=== PATIENT | male | born 1980 | race Hispanic/Latino ===

== ENCOUNTER → 2023-04-24 | Emergency (ER) | payer OTHER, SELFPAY ==
[~2023-04-24] MED LIST: IPRATROPIUM BROM 0.5MG/2.5ML ONE; LEVALBUTEROL 1.25 MG/3 ML NEB ONE; METHYLPREDNISOLONE 125 MG INJ ONE
--- NOTE | 2023-04-24 10:15 | RAD REPORT ---
EXAM DESCRIPTION: RAD - Chest Single View - 04/24/2023 10:00 am CLINICAL HISTORY: DYSPNEA Chest pain. COMPARISON: No comparisons FINDINGS: Portable technique limits examination quality. The lungs are grossly clear. The heart is normal in size. No displaced fractures. IMPRESSION: No acute intrathoracic process suspected.
--- NOTE | 2023-04-24 10:54 | EDPHYS ---
Physician Documentation [facility] Name: Aman Ratliff Jr Age: 42 yrs Sex: Male : 1980 Arrival Date: 04/24/2023 Time: 09:21 Bed 2 Private MD: ED Physician Osvaldo Britton HPI: 04/23 09:36 This 42 yrs old Male presents to ER via Ambulatory with complaints of Asthma rn Exacerbation. 09:36 The patient presents to the emergency department with wheezing, Current therapy: rn albuterol inhaler. Onset: The symptoms/episode began/occurred yesterday. Modifying factors: The symptoms are alleviated by nothing, the symptoms are aggravated by nothing. Associated signs and symptoms: Pertinent negatives: fever. Severity of symptoms: At their worst the symptoms were mild in the emergency department the symptoms are unchanged. The patient has experienced similar episodes in the past. The patient has not recently seen a physician. Patient reports having asthma exacerbation since last night. 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 Does not feel ill. No fever. Has nonproductive cough. Feels identical to other asthma exacerbations. No cardiac history. Does smoke. No hemoptysis. No history of DVT or PE. No trauma.. Historical: - Allergies: 09:33 No Known Allergies; aa5 - PMHx: 09:33 Asthma; aa5 - PSHx: 09:33 reconstruction of right leg; stomach sx post trauma; left flank (muscle); multiple skin aa5 grafts; - Immunization history:: Adult Immunizations unknown. - Social history:: Smoking status: Patient reports the use of cigarette tobacco products, denies chronic smoking, but will smoke occasionally. - Family history:: not pertinent. - Hospitalizations: : No recent hospitalization is reported. ROS: 09:36 Constitutional: Negative for fever, chills, and weight loss, Cardiovascular: Negative rn for chest pain, palpitations, and edema, Respiratory: Positive for shortness of breath and wheezing Abdomen/GI: Negative for abdominal pain, nausea, vomiting, diarrhea, and constipation, MS/Extremity: Negative for injury and deformity, Skin: Negative for injury, rash, and discoloration, Neuro: Negative for headache, weakness, numbness, tingling, and seizure, Exam: 09:36 Constitutional: This is a well developed, well nourished patient who is awake, alert, rn mild tachypnea Head/Face: Normocephalic, atraumatic. ENT: Dry mucous membranes, no stridor Cardiovascular: Regular rate and rhythm. No pulse deficits. Respiratory: Mild tachypnea, expiratory wheezing throughout noted. No retractions. Speaking full sentences. Abdomen/GI: Soft, non-tender MS/ Extremity: Pulses equal, no cyanosis. Neuro: Awake and alert, GCS 15 Vital Signs: 09:23 BP 152 / 119; Pulse 88; Resp 20 S; Temp 97.6(TE); Pulse Ox 98% on R/A; Weight 106.59 kg aa5 (R); Height 5 ft. 9 in. (R); 09:57 BP 152 / 119; Pulse 77; Resp 18; Pulse Ox 99% on R/A; ld1 10:42 BP 162 / 101; Pulse 67; Resp 18; Pulse Ox 100% on R/A; ld1 09:23 Body Mass Index 34.70 (106.59 kg, 175.26 cm) aa5 MDM: 09:26 Patient medically screened. rn 10:52 Differential diagnosis: acute asthma, reactive airway. Antibiotic administration: Not rn indicated. Data reviewed: vital signs, nurses notes, radiologic studies, plain films, and as a result, I will discharge patient. Counseling: I had a detailed discussion with the patient and/or guardian regarding the historical points, exam findings, and any diagnostic results supporting the discharge/admit diagnosis, radiology results, the need for outpatient follow up, to return to the emergency department if symptoms worsen or persist or if there are any questions or concerns that arise at home. Response to treatment: the patient's symptoms have mildly improved after treatment, and as a result, I will discharge patient. Special discussion: I discussed with the patient/guardian in detail that at this point there is no indication for admission to the hospital. It is understood, however, that if the symptoms persist or worsen the patient needs to return immediately for re-evaluation. 04/23 09:35 Order name: XRAY Chest (1 view); Complete Time: 10:16 rn 04/23 09:35 Order name: IV Start; Complete Time: 09:56 rn Administered Medications: 09:57 Drug: MethylPrednisoLONE IVP 125 mg IVP once Route: IVP; Site: left forearm; ld1 09:57 Drug: Levalbuterol Inhalation 1.25 mg Inhalation once Route: Inhalation; ld1 09:57 Drug: Ipratropium Inhalation Aerosol 0.5 mg Inhalation once Route: Inhalation; ld1 Disposition Summary: 04/24/23 10:54 Discharge Ordered Notes: Location: Home rn Problem: new rn Symptoms: have improved rn Condition: Stable rn Diagnosis - Moderate persistent asthma with (acute) exacerbation rn Followup: rn - With: Private Physician - When: As needed - Reason: Recheck today's complaints, Re-evaluation by your physician Discharge Instructions: - Discharge Summary Sheet rn - Asthma, Adult rn Forms: - Medication Reconciliation Form rn - Thank You Letter 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 - Prescription Opioid Use rn - Patient Portal Instructions rn - Leadership Thank You Letter rn - Work release form aa5 Prescriptions: - albuterol sulfate 90 mcg/actuation Inhalation HFA Aerosol Inhaler - inhale 2 inhalation INHALATION route every 4 to 6 hours As needed as needed for rn bronchospasm; administer via ventilator; 1 unit; Refills: 0, Product Selection Permitted - Prednisone 20 mg Oral Tablet - take 3 tablets ORAL route once daily for 5 days; 15 tablet; Refills: 0, Product rn Selection Permitted Signatures: Dispatcher [employer] Osvaldo Marinelli MD MD rn Calderon, Audri RN RN aa5 Fern Ann RN RN ld1
--- NOTE | 2023-04-24 10:54 | ER ---
Nurse's Notes [facility] Name: Aman Ratliff Jr Age: 42 yrs Sex: Male : 1980 Arrival Date: 04/24/2023 Time: 09:21 Bed 2 Private MD: Diagnosis: Moderate persistent asthma with (acute) exacerbation Presentation: 04/23 09:23 Chief complaint: Patient states: "It's my asthma". Pt reports dry cough and SOB since aa5 last night. 09:23 Coronavirus screen: shortness of breath. Ebola Screen: Patient denies travel to an aa5 Ebola-affected area in the 21 days before illness onset. Initial Sepsis Screen: Does the patient meet any 2 criteria? No. Patient's initial sepsis screen is negative. Does the patient have a suspected source of infection? No. Patient's initial sepsis screen is negative. Risk Assessment: Do you want to hurt yourself or someone else? Patient reports no desire to harm self or others. Onset of symptoms was April 2023. 09:23 Method Of Arrival: Ambulatory aa5 09:23 Acuity: HARSHIL 3 aa5 Historical: - Allergies: 09:33 No Known Allergies; aa5 - PMHx: 09:33 Asthma; aa5 - PSHx: 09:33 reconstruction of right leg; stomach sx post trauma; left flank (muscle); multiple skin aa5 grafts; - Immunization history:: Adult Immunizations unknown. - Social history:: Smoking status: Patient reports the use of cigarette tobacco products, denies chronic smoking, but will smoke occasionally. - Family history:: not pertinent. - Hospitalizations: : No recent hospitalization is reported. Screenin:57 [facility] ED Fall Risk Assessment (Adult) History of falling in the last 3 months, ld1 including since admission No falls in past 3 months (0 pts). Abuse screen: Denies injuries from another. Nutritional screening: No deficits noted. Tuberculosis screening: No symptoms or risk factors identified. Assessment: 09:57 General: Appears in no apparent distress. comfortable, Behavior is calm, cooperative, ld1 appropriate for age. Pain: Denies pain. Neuro: Level of Consciousness is awake, alert, obeys commands, Oriented to person, place, time, situation. Cardiovascular: Capillary refill < 3 seconds Patient's skin is warm and dry. Rhythm is sinus rhythm. Respiratory: Reports shortness of breath at rest on exertion Airway is patent Respiratory effort is even, unlabored. GI: Abdomen is round non-distended. : No signs and/or symptoms were reported regarding the genitourinary system. EENT: No signs and/or symptoms were reported regarding the EENT system. Derm: No signs and/or symptoms reported regarding the dermatologic system. Musculoskeletal: No signs and/or symptoms reported regarding the musculoskeletal system. Vital Signs: 09:23 BP 152 / 119; Pulse 88; Resp 20 S; Temp 97.6(TE); Pulse Ox 98% on R/A; Weight 106.59 kg aa5 (R); Height 5 ft. 9 in. (R); 09:57 BP 152 / 119; Pulse 77; Resp 18; Pulse Ox 99% on R/A; ld1 10:42 BP 162 / 101; Pulse 67; Resp 18; Pulse Ox 100% on R/A; ld1 09:23 Body Mass Index 34.70 (106.59 kg, 175.26 cm) aa5 ED Course: 09:23 Arm band placed on. aa5 09:25 Patient arrived in ED. rg4 09:26 Osvaldo Britton MD is Attending Physician. rn 09:31 Fern Ann RN is Primary Nurse. ld1 09:35 Triage completed. aa5 09:57 Patient has correct armband on for positive identification. Placed in gown. Bed in low ld1 position. Call light in reach. Side rails up X2. presiding judge on. Pulse ox on. NIBP on. Door closed. Noise minimized. Warm blanket given. :57 No provider procedures requiring assistance completed. Inserted saline lock: 22 gauge ld1 in left forearm, using aseptic technique. Blood collected. 10:02 XRAY Chest (1 view) In Process Unspecified. EDMS 11:26 Provided Education on: medication. ld1 11:26 IV discontinued, intact, bleeding controlled, No redness/swelling at site. ld1 Administered Medications: :57 Drug: MethylPrednisoLONE IVP 125 mg IVP once Route: IVP; Site: left forearm; ld1 09:57 Drug: Levalbuterol Inhalation 1.25 mg Inhalation once Route: Inhalation; ld1 09:57 Drug: Ipratropium Inhalation Aerosol 0.5 mg Inhalation once Route: Inhalation; ld1 Medication: 09:57 VIS not applicable for this client. ld1 Outcome: 10:54 Discharge ordered by . rn 11:25 Discharged to home ambulatory, ld1 11:25 Condition: stable 11:25 Discharge instructions given to patient, Instructed on discharge instructions, follow up and referral plans. Demonstrated understanding of instructions, follow-up care, medications, Prescriptions given X 2, 11:26 Patient left the ED. ld1 Signatures: Dispatcher [employer] EDOsvaldo Bansal MD MD rn Calderon, Audri, RN RN lasha5 Diana Serrano 4 Fern Ann RN RN ld1
[2023-04-24 12:07] VITALS: BP 162/101; TEMP 97.6; O2SAT 100
== END ==
LOC: ER 09:21
DX: J45.41 Moderate persistent asthma with (acute) exacerbation (principal); F17.210 Nicotine dependence, cigarettes, uncomplicated
CPT/HCPCS: 71045; 96374; 99285; J2930; J7614; J7644